=== PATIENT | female | born 1975 | race Caucasian/White ===

== ENCOUNTER 2016-10-08 10:15 | Inpatient (IN) | payer OTHER ==
[2016-10-08 11:44] VITALS: BMI 22.3
[2016-10-08] MEDS: SODIUM CHLORIDE 0.9% 1,000 ML IV SCH (15:06)
[2016-10-08 16:07] LABS: Basophils % (A) 0 %; CH 28.4; CHCM 31.9; Eosinophils # (A) 0.1 k/uL (0-0.7); Eosinophils % (A) 1 %; HCT 38.3 % (34.0-46.0); HDW 2.24; HGB 12.1 gm/dL (11.4-16.0); Luc # (Auto) 0.12; Luc % (Auto) 1; Lymphocytes # (A) 1.7 k/uL (1.0-4.8); Lymphocytes % (A) 13 %; MCH 28.2 pg (25.0-35.0); MCHC 31.6 g/dL (31.0-37.0); MCV 89.3 fL (80.0-100.0); Mean Platelet Volume 6.9; Monocytes # (A) 0.5 k/uL (0-1.0); Monocytes % (A) 4 %; Neutrophils # (A) 10.5 k/uL (1.3-7.7); Neutrophils % (A) 81 %; RBC 4.29 m/uL (3.80-5.40); RDW 12.8 % (11.5-15.5); WBC (Perox) 13.98
[2016-10-08] MEDS ORDERED: HYDROmorphone 1 MG/ML 1 ML SYRINGE IVP PRN (16:54)
[2016-10-08] MEDS: ONDANSETRON 4 MG/2 ML VIAL IVP PRN (17:25)
[2016-10-08] MEDS ORDERED: CAFFEINE CITRATE 60 MG/3 ML VIAL PO SCH (17:30)
[2016-10-08] MEDS ORDERED: CAFFEINE-SODIUM BENZOATE 500 MG in SODIUM CHLORIDE 0.9% 1,000 ML IV ONE (18:30)
--- NOTE | 2016-10-08 23:10 | P.CONS ---
History of Present Illness - Reason for Consult Consult date: 10/08/16 - History of Present Illness The patient is a 41-year-old female who was transferred from [facility] where she presented with acute onset of rectal bleeding. CT of the abdomen showed thickening in the sigmoid colon. We were asked to see her for consideration of colitis. The patient had initially abdominal pains and diarrhea which turned bloody. She had around 10 bloody bowel movements yesterday and couple after admission to the hospital. No nausea or vomiting or hematemesis. The patient apparently had similar episode which was self-limited around 1 month ago. And she has family history of colitis in her brother. She indicated that there was nothing unusual about her recent activities or meals. No recent travel. Has not been on recent antibiotics. The patient had no prior colonoscopy. Review of Systems Constitutional: Denied fever, chills or any unintentional weight loss Neurologic: No headaches, double vision or any new sensory or motor changes Cardiopulmonary: Denied any chest pains, shortness of breath or palpitations Gastrointestinal: See present illness above Endocrine: Denied diabetes or thyroid disease. Genitourinary: No hematuria, dysuria or frequency Skin: No rashes Musculoskeletal: No joint pains or swelling Psychiatric: No anxiety or depression Past Medical History Past Medical History: No Reported History Additional Past Medical History / Comment(s): pt states no medical history History of Any Multi-Drug Resistant Organisms: None Reported Past Surgical History: Section Additional Past Surgical History / Comment(s): 2 sections Past Anesthesia/Blood Transfusion Reactions: No Reported Reaction Past Psychological History: No Psychological Hx Reported Smoking Status: Never smoker - Past Family History Mother Family Medical History: Cancer, Hyperlipidemia, Hypertension Additional Family Medical History / Comment(s): lymphoma Medications and Allergies Home Medications Medication Instructions Recorded Confirmed Type Aspirin/Acetaminophen/Caffeine 1 tab PO DAILY PRN 10/08/16 10/08/16 History [Excedrin Migraine Caplet] Pediatric Multivitamin No.30 1 tab PO DAILY 10/08/16 10/08/16 History [Multivitamin Children's Gummies] Allergies Allergy/AdvReac Type Severity Reaction Status Date / Time sumatriptan [From Imitrex] AdvReac MADE Verified 10/08/16 14:22 HEADACHE WORSE Physical Exam Vitals: Vital Signs Temp Pulse Resp BP Pulse Ox 10/08/16 12:10 98.3 F 83 18 123/74 97 Intake and Output 10/07/16 10/08/16 10/08/16 22:59 06:59 14:59 Other: Weight 58.967 kg Patient Weight 10/09/16 06:59 Weight 58.967 kg General: Appeared stated age, very pleasant in no acute distress Head and neck: Normocephalic and atraumatic. Conjunctivae pink and sclerae not icteric. Mucous membranes moist and pink. No masses in the neck or tracheal shifts Lungs: Clear to auscultation with no dullness to percussion Heart: Regular, no abnormal sounds, murmurs, gallops or friction rubs Abdomen: Soft, no masses or organomegalies. Mild tenderness LLQ, no guarding or rebound. Bowel sounds present Extremities: No clubbing, cyanosis or edema Neurologic: Alert and oriented 3. Cranial nerves grossly intact. No gross sensory or motor abnormalities Results CBC & Chem 7: 10/09/16 06:47 Assessment and Plan Plan: 41-year-old female with acute onset of abdominal pain and rectal bleeding. Infectious or self-limited colitis is the likely diagnosis based on her presentation and computed tomography scan findings. With her similar illness around 1 month ago and a family history of colitis in her brother, consideration of nonspecific inflammatory bowel disease such as ulcerative colitis or Crohn's colitis should be considered. The patient had no prior colonoscopy and seems to be motivated to have us investigate this episode further. Will allow clear liquid diet and based on her course in the next 12-24 hours we will consider preparing her for colonoscopy for Monday. I will discuss with you and follow with you with interest.
[2016-10-09 07:40] LABS: Basophils # (A) 0.1 k/uL (0-0.2); Basophils % (A) 0 %; CH 28.4; CHCM 32.2; Eosinophils # (A) 0.1 k/uL (0-0.7); Eosinophils % (A) 1 %; HCT 37.6 % (34.0-46.0); HDW 2.27; HGB 12.1 gm/dL (11.4-16.0); Luc # (Auto) 0.13; Luc % (Auto) 1; Lymphocytes # (A) 2.1 k/uL (1.0-4.8); Lymphocytes % (A) 18 %; MCH 28.4 pg (25.0-35.0); MCHC 32.1 g/dL (31.0-37.0); MCV 88.5 fL (80.0-100.0); Mean Platelet Volume 7.3; Monocytes # (A) 0.7 k/uL (0-1.0); Monocytes % (A) 6 %; Neutrophils # (A) 8.8 k/uL (1.3-7.7); Neutrophils % (A) 74 %; RBC 4.24 m/uL (3.80-5.40); RDW 12.8 % (11.5-15.5); WBC 11.9 k/uL (3.8-10.6); WBC (Perox) 12.89
[2016-10-09] MEDS: SODIUM CHLORIDE 0.9% 1,000 ML IV SCH ×3 (08:48→16:44)
[2016-10-09] MEDS ORDERED: PANTOPRAZOLE 40 MG/10 ML VIAL IVP SCH (09:00)
[2016-10-09] MEDS: MULTIVITAMINS, PEDIATRIC 1 EACH CHEWABLE PO SCH (09:38)
[2016-10-09] MEDS ORDERED: CAFFEINE-SODIUM BENZOATE 500 MG in SODIUM CHLORIDE 0.9% 1,000 ML IV ONE (16:00)
[2016-10-09] MEDS: ONDANSETRON 4 MG/2 ML VIAL IVP PRN ×2 (16:59→23:02)
[2016-10-09] MEDS ORDERED: PEG 3350-NA SULF,BICARB,CL/KCL 4,000 ML BOTTLE PO ONE (17:00)
--- NOTE | 2016-10-09 17:51 | HP ---
DATE OF ADMISSION: 10/08/2016 PRESENTING COMPLAINT: Abdominal pain. HISTORY OF PRESENTING COMPLAINT: This is a very pleasant 41-year-old patient who came from [place]. Has followed with Dr. Geovanny Mixon. Patient normally in good health. Patient came home and had a mash potato and roast dinner. Started having abdominal cramping and a burning sensation. Did have multiple loose stools and started noticing blood; nausea in which she decided to go to [facility]. CAT scan was suggestive of colitis, hence, patient was transferred down here. Patient in rather good health otherwise. Does not remember eating anything raw. Feeling a bit better. Patient been up in the hallway. Denies any obvious fever. REVIEW OF SYSTEMS: CONSTITUTIONAL: Tired. HEENT: None. RESPIRATORY: None. CARDIOVASCULAR: None. GASTROINTESTINAL: As above. GENITOURINARY: None. MUSCULOSKELETAL: None. DERMATOLOGIC: None. HEMATOLOGICAL: None. LYMPHATICS: None. PSYCHIATRY: None. PAST SURGICAL HISTORY: . SOCIAL HISTORY: No smoking. No alcohol. 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 . FAMILY HISTORY: Hyperlipidemia, hypertension, lymphoma. HOME MEDICATIONS: Multivitamin, Excedrin migraine. ALLERGIES: SUMATRIPTAN. PHYSICAL EXAMINATION: Temperature 98.3, pulse ( ), respirations 18, blood pressure 120/74, pulse ox 97% on room air. GENERAL APPEARANCE: Sitting up, not in distress. HEENT: Conjunctivae normal. Oral cavity normal. NECK: JVD not raised. Mass not palpable. RESPIRATORY: Effort normal. LUNGS; Clear. CARDIOVASCULAR: First and second sounds normal. No edema. ABDOMEN: Soft. Liver and spleen not palpable. Very mild tenderness. LYMPHATIC: No lymph node in neck or axilla. PSYCHIATRY: Alert and oriented times three. Mood is normal. NEUROLOGICAL: Cranial nerves grossly intact. INVESTIGATIONS; White count 13, hemoglobin 12.1, 8 neutrophils. C. difficile negative. ASSESSMENT: 1. Acute colitis, likely infectious in a patient who has no other ischemic risk factors. 2. Leukocytosis from above. PLAN: Patient admitted. She will be put on IV ceftriaxone, GI was consulted and are contemplating possibly colonoscopy. Case was discussed with the patient and in detail, reassured. IV fluids are to be given.
[2016-10-09 23:18] VITALS: TEMP 98.2
--- NOTE | 2016-10-10 03:12 | P.PN ---
Subjective Principal diagnosis: Colitis The patient is a 41-year-old female who was transferred from [facility] where she presented with acute onset of rectal bleeding. CT of the abdomen showed thickening in the sigmoid colon. We were asked to see her for consideration of colitis. The patient had initially abdominal pains and diarrhea which turned bloody. She had around 10 bloody bowel movements the day before admission and couple after admission to the hospital. No nausea or vomiting or hematemesis. The patient apparently had similar episode which was self-limited around 1 month ago. And she has family history of colitis in her brother. She indicated that there was nothing unusual about her recent activities or meals. No recent travel. Has not been on recent antibiotics. The patient had no prior colonoscopy. Today, the patient reports having had no further diarrhea a week or bloody bowel movements. Her abdominal pain has improved as well. Her hemoglobin remained stable at 12.1. She is very interested in having her colonoscopy to find out the cause of her bleeding and in light of her family history and her age. Objective - Vital Signs Vital signs: Vital Signs Temp 98.5 F 10/09/16 07:00 Pulse 81 10/09/16 07:00 Resp 18 10/09/16 07:00 BP 110/72 10/09/16 07:00 Pulse Ox 97 10/09/16 07:00 Intake & Output 10/08/16 10/09/16 10/09/16 18:59 06:59 18:59 Intake Total 300 2440 Balance 300 2440 Weight 58.967 kg Intake: Intake, IV Titration 300 2200 Amount Caffeine-Sodium Benzoate 1000 500 mg In Sodium Chloride 0.9% 1,000 ml @ 1000 mls /hr IV ONCE ONE Rx#: [id number] Sodium Chloride 0.9% 1, 300 1200 000 ml @ 100 mls/hr IV . Q10H MARIE Rx#:[id number] Oral 240 Other: # Voids 1 # Bowel Movements 1 - Exam General: Appeared stated age, very pleasant in no acute distress Head and neck: Normocephalic and atraumatic. Conjunctivae pink and sclerae not icteric. Mucous membranes moist and pink. No masses in the neck or tracheal shifts Lungs: Clear to auscultation with no dullness to percussion Heart: Regular, no abnormal sounds, murmurs, gallops or friction rubs Abdomen: Soft, no masses or organomegalies. No tenderness, guarding or rebound. Bowel sounds present Extremities: No clubbing, cyanosis or edema Neurologic: Alert and oriented 3. Cranial nerves grossly intact. No gross sensory or motor abnormalities - Labs CBC & Chem 7: 10/09/16 06:47 Labs: Abnormal Lab Results - Last 24 Hours (Table) 10/08/16 10/08/16 10/09/16 Range/Units 15:30 15:48 06:47 WBC 13.0 H 11.9 H (3.8-10.6) k/uL Neutrophils # 10.5 H 8.8 H (1.3-7.7) k/uL Stool Occult Blood Positive H (Negative) Assessment and Plan Plan: 41-year-old female with acute onset of abdominal pain and rectal bleeding. Infectious or self-limited colitis is the likely diagnosis based on her presentation and computed tomography scan findings. With her similar illness around 1 month ago and a family history of colitis in her brother, consideration of nonspecific inflammatory bowel disease such as ulcerative colitis or Crohn's colitis should be considered. The patient had no prior colonoscopy and seems to be motivated to have us investigate this episode further. As she is stable at this time and not manifesting additional bleeding, I would go ahead and prepare her for colonoscopy for tomorrow. Further plans will be made based on the findings.
[2016-10-10] MEDS: SODIUM CHLORIDE 0.9% 1,000 ML IV SCH (07:15)
[2016-10-10] MEDS ORDERED: IV FLUID CONTINUATION 1,000 ML IV ONE (07:25)
[2016-10-10 07:34] VITALS: BP 120/69; PULSE 89; RESP 16
[2016-10-10] MEDS ORDERED: LIDOCAINE 1% INJ 10MG/ML (20 ML MDV) ONE (07:59)
[2016-10-10] MEDS ORDERED: PROPOFOL 10 MG/ML 20 ML VIAL IV ONE (07:59)
--- NOTE | 2016-10-10 08:41 | P.PCN ---
Date of Procedure: 10/10/16 Preoperative Diagnosis: Postoperative Diagnosis: Procedure(s) Performed: Procedure: Colonoscopy and biopsy. Preoperative diagnosis: Rectal bleeding and abnormal CT of the abdomen. Postoperative diagnosis: 1. Resolving segmental colitis, likely secondary to infectious or self-limited or ischemic colitis. 2. Biopsies obtained. 3. No bleeding noted at the time of this exam. 4. No polyps or tumors seen. Preparation: GoLYTELY prep. Sedation: Was provided by anesthesia. Brief clinical history: The patient is a 41-year-old female who was transferred from [facility] where she presented with acute onset of rectal bleeding. CT of the abdomen showed thickening in the sigmoid colon. We were asked to see her for consideration of colitis. The patient had initially abdominal pains and diarrhea which turned bloody. She had around 10 bloody bowel movements the day before admission and couple after admission to the hospital. No nausea or vomiting or hematemesis. The patient apparently had similar episode which was self-limited around 1 month ago. And she has family history of colitis in her brother. She indicated that there was nothing unusual about her recent activities or meals. No recent travel. Has not been on recent antibiotics. The patient had no prior colonoscopy. Yesterday, the patient reported having had no further diarrhea or bloody bowel movements. Her abdominal pain has improved as well. Her hemoglobin remained stable at 12.1. She is very interested in having her colonoscopy to find out the cause of her bleeding in light of her family history and her age. The details are summarized in the history and physical and dictated consultation. Procedure: With the patient on her left lateral decubitus position and after informed consent and adequate sedation, the perianal area was inspected and it did not show any fissures or fistulas. There were no masses felt on digital rectal examination. The Olympus CFQ 160L colonoscope was then inserted in the rectum in the usual fashion and advanced to the cecum. There was a segment of abnormality in the proximal sigmoid with patches of erythema and edema and minimal friability but no ulcerations exudations or spontaneous bleeding. The mucosa proximal and distal to that area to the cecum was completely normal. The findings were consistent with resolving colitis. No polyps or tumors were seen or any obvious diverticular disease. I obtained biopsies in the proximal sigmoid than I retroflexed endoscope in the rectum before the endoscope was withdrawn. The patient tolerated the procedure well. Plan: The patient was reassured Will await biopsy results. In the meantime I recommended low-residue diet. Further plans can be made based on her course and biopsy results. Implants: Indications for Procedure: Operative Findings: Description of Procedure:
[2016-10-10] MEDS: MULTIVITAMINS, PEDIATRIC 1 EACH CHEWABLE PO SCH (08:45)
--- NOTE | 2016-10-14 13:19 | DS ---
DATE OF ADMISSION: 10/08/2016 DATE OF DISCHARGE: 10/10/2016 FINAL DIAGNOSES: 1. Acute colitis, likely infectious. 2. Leukocytosis from above. CONSULTATION: Dr. Villegas from GI. PROCEDURE: Colonoscopy. HOSPITAL COURSE: This patient presented with cramping abdominal pain, felt to be infectious colitis as evidence by CT scan. Patient did undergo a colonoscope. Did show evidence of same with healing. Patient feeling much better by the time of discharge. Given the rapid improvement it was felt not to continue the antibiotics anymore. On exam: ABDOMEN: Soft, nontender. The patient up and about in the hallway. Afebrile. Care was discussed with the patient and in detail. DISCHARGE MEDICATIONS: Excedrin Migraine tablets p.r.n. DIET: Soft, bland. Follow with Dr. Villegas on 11/01/16. Follow with Dr. Eric Mixon 10/14/16. Discharge planning more than 35 minutes including discussion.
== END 2016-10-10 13:13 | disposition home or self-care (01) | DRG 394 ==
LOC: 5MS5E 11:58
PROVIDERS: ADMIT Hospitalist; ATTEND Hospitalist
PROC: 0DBN8ZX Excision of Sigmoid Colon, Via Natural or Artificial Opening Endoscopic, Diagnostic (ICD-10-PCS; principal; 2016-10-10 09:30)
DX: K55.9 Vascular disorder of intestine, unspecified (principal); A09 Infectious gastroenteritis and colitis, unspecified; Z88.8 Allergy status to other drugs, medicaments and biological substances; Z79.82 Long term (current) use of aspirin; Z79.899 Other long term (current) drug therapy
CPT/HCPCS: 45380; 81025; 82272; 85025; 87324; 88305

== ENCOUNTER 2022-12-02 11:50 | Day surgery (SDC) | payer BC ==
[2022-11-29 14:02] VITALS: BMI 23.6
[~2022-12-02 11:50] MED LIST: LACTATED RINGERS 1,000 ML IV SCH
[2022-12-02 12:20] VITALS: TEMP 98.8
[2022-12-02] MEDS ORDERED: PROPOFOL 10 MG/ML 20 ML VIAL IV ONE (13:33)
--- NOTE | 2022-12-02 13:47 | P.PCN ---
Date of Procedure: 12/02/22 Procedure(s) Performed: BRIEF HISTORY: Patient is a 47-year-old pleasant white female scheduled for an elective colonoscopy as a part of rectal pain and chronic constipation for the last several months duration. PROCEDURE PERFORMED: Colonoscopy. PREOPERATIVE DIAGNOSIS: Rectal pain and chronic constipation. IV sedation per Anesthesia. PROCEDURE: After informed consent was obtained, the patient, was brought into the endoscopy unit. IV sedation was administered by Anesthesia under continuous monitoring. Digital rectal examination was normal. Initially the Olympus CF-160 flexible video colonoscope was then inserted in the rectum, gradually advanced into the cecum without any difficulty. Careful examination was performed as the scope was gradually being withdrawn. Ileocecal valve and the appendiceal orifice were visualized and appeared normal. Prep was excellent. Mucosa of the cecum, ascending colon, transverse colon, descending colon, sigmoid colon, and rectum appeared normal. Retroflexion was performed in the rectum and no lesions were seen. The patient tolerated the procedure well. IMPRESSION: Normal-appearing colon from rectum to cecum with no evidence of colorectal neoplasia. RECOMMENDATIONS: Findings of this examination were discussed with the patient as well as a family. She was advised to continue with MiraLAX daily and use hydrocortisone suppositories as needed. Recommend repeat screening colonoscopy in 10 years..
[2022-12-02 14:15] VITALS: BP 107/75; PULSE 89; RESP 18
== END 2022-12-02 14:22 | disposition home or self-care (01) ==
LOC: ORWHC2ENDO 11:50
PROVIDERS: ATTEND Internal Medicine Gastroenterology
DX: K59.09 Other constipation (principal); K62.89 Other specified diseases of anus and rectum; I10 Essential (primary) hypertension; Z79.899 Other long term (current) drug therapy
CPT/HCPCS: 81025; 45378; J2704